=== PATIENT | male | born 1980 | race Caucasian/White ===

== ENCOUNTER → 2018-02-22 | Day surgery (SDC) | payer OTHER ==
[~2018-02-22] MED LIST: BUPIVACAINE HCL PF 0.75% 30 ML VIAL ONE; KETOROLAC TROMETHAMINE 60 MG/2 ML (IM) VIAL IM ONE; LACTATED RINGER'S 1000 ML INJ 1,000 ML ONE; LIDOCAINE 2%/EPINEPHrine PF 1:200,000 20ML SDV ONE; MELO15TA20 PO; MEPERIDINE HCL 25 MG/ML VIAL ONE; MIDAZOLAM HCL 5 MG/ML VIAL (1 ML) ONE; MORPHINE SULFATE 4 MG/ML INJ ONE; ONDANSETRON HCL 4 MG/2 ML VIAL IV PUSH ONE; PROPOFOL 100 MG/10 ML INJ IV ONE; ceFAZolin INJ 1,000 MG VIAL ONE
--- NOTE | 2018-02-22 15:18 | MP ---
cc: Chang Medina MD DATE OF OPERATION: 02/22/2018 DATE OF SURGERY: 02/22/2018. PREOPERATIVE DIAGNOSIS: Right shoulder bursitis with acromioclavicular joint osteoarthritis. 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 PROCEDURES: Right shoulder arthroscopy with extensive debridement with subacromial decompression, partial acromioplasty and distal clavicle excision. SURGEON: Chang Medina MD ECHOCARDIOGRAPH TECH: ADRIAN Foley The surgical procedure was assisted by my Advanced Registered Nurse Practitioner. My PRINTER ASSISTANT presence was necessary throughout this case for the manipulation and positioning of the surgical extremity. My PRINTER ASSISTANT was assisting me throughout the duration of this procedure. The skill set of an Advanced Registered Nurse Practitioner was medically necessary to complete this procedure. During the surgical case, the electrical design technologist was working at the back table and the Advanced Registered Nurse Practitioner was directly assisting me. PROCEDURE: The patient had regional anesthesia performed. He was brought back to the operative theater, received intravenous Ancef. He had general anesthesia administered. He was placed into lateral decubitus position with an axillary roll and well padded down leg. He was then placed into 12 pounds of traction and the right upper extremity was prepped and draped in the usual sterile fashion. We made a standard posterior portal for diagnostic arthroscopy and then anterior portal at the soft spot. We found that the vast majority of the glenohumeral joint was unremarkable, although there was a small area of chondromalacia with a single flapping piece of cartilage in the mid-superior aspect; we used an oscillating shaver to debride this. There was a small area of anterior labral tear around the 3 o'clock position with a little bit of instability from probing. We used an oscillating shaver to debride this down to a stable base. The biceps tendon itself was in very good condition. The remaining portion of the superior labrum was in good condition. The rotator cuff had a small area of a flap of undersurface rotator cuff tear. This was probably about 7 mm away from the actual insertion onto the greater tuberosity and it was extending into the interval region. We used an oscillating shaver to debride this undersurface tear. We felt that this small area only encompassed about 20% of the undersurface thickness of the rotator cuff and did not require repair. There were no loose bodies in the axillary pouch. We then placed the arthroscope into the subacromial space. We identified very severe bursitis and extensive cobweb-looking bursal tissue. We debrided all of this and this extended into the subdeltoid recess and then also into the anterior aspect in front of the intraarticular portion of the subscapularis. We made sure the patient had good range of motion and that all of the bursal tissue was excised with the shoulder in internal and external rotation. There was a small spur on the undersurface of the acromion near the acromioclavicular joint, which we did a resection using a bur to co-plane this. We identified the acromioclavicular joint on the spinal needle visualization. We took down the undersurface capsular region, identified both the anterior and posterior aspect and we used a combination of shaver and bur to perform a distal clavicle excision, removing approximately 1 cm of the distal clavicle. We did test the clavicle by pushing down on it and making sure that there was no further impingement onto the acromion as there was before and there was significant arthrosis of that joint. Note that the rotator cuff was visualized from the superior aspect and was completely intact. We made sure we had no free floating pieces of bone from the distal clavicle excision within the subacromial space, we irrigated this and then closed the wounds with 2-0 Vicryl, followed by 3-0 nylon. Dressings were applied and the patient was placed into a sling. POSTOPERATIVE PLAN: Early range of motion and strengthening. MD SUDHA Koch/ANAHY , 01:32 PM , 03:17 PM
== END | disposition home or self-care (01) ==
LOC: ESDC 10:48
PROVIDERS: ATTEND Orthopaedic Surgery
DX: M75.51 Bursitis of right shoulder (principal); M19.011 Primary osteoarthritis, right shoulder
CPT/HCPCS: 01630; 01991; 29823; 29824; 29826; 64417; J0690; J1885; J2175; J2250; J2270; J2405; J7120